=== PATIENT | male | born 1955 | race Caucasian/White ===

== ENCOUNTER 2021-01-01 19:47 | Emergency (ER) | payer MEDICARE ==
[~2021-01-01] VITALS: Ht 185.4 cm; Wt 96.7 kg
--- NOTE | 2021-01-01 21:03 | NUR ---
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
--- NOTE | 2021-01-01 21:12 | NUR ---
pt to [facility]
[2021-01-01 21:23] VITALS: BP 128/80
== END 2021-01-01 21:51 | disposition home or self-care (01) ==
LOC: ED 20:45
DX: S09.90XA Unspecified injury of head, initial encounter (principal); W22.8XXA Striking against or struck by other objects, initial encounter; Y93.89 Activity, other specified; Y92.009 Unspecified place in unspecified non-institutional (private) residence as the place of occurrence of the external cause; Y99.8 Other external cause status
CPT/HCPCS: 70450; 99284